=== PATIENT | female | born 1970 | race Caucasian/White ===

== ENCOUNTER → 2023-09-25 | Outpatient (CLI) | payer SELFPAY ==
[~2023-09-25] MED LIST: ADRENAL PO; Norco 5-325 Ta1 EACH PO; VITAMIN D5000 UNIT PO; Valium5 MG PO; [UNRECOGNIZED DRUG - OTHER] PO
== END ==
LOC: LAB 18:50 → LAB SHORT 18:50
DX: L08.9 Local infection of the skin and subcutaneous tissue, unspecified (principal)
CPT/HCPCS: 87070; 87106; 87205